=== PATIENT | male | born 2000 | race Caucasian/White ===

== ENCOUNTER 2021-02-26 07:04 | Emergency (ER) | payer MEDICAID, SELFPAY ==
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
[2021-02-26 07:05] VITALS: BP 125/108; PULSE 106; RESP 20; TEMP 36.6; O2SAT 96
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
[2021-02-26 07:49] VITALS: RESP 14; O2SAT 99
== END 2021-02-26 07:48 | disposition home or self-care (01) ==
PROVIDERS: Emergency Provider Emergency Medicine
DX: M79.642 Pain in left hand (principal)
CPT/HCPCS: 73130; 99282; 99283